=== PATIENT | female | born 1965 | race Caucasian/White ===

== ENCOUNTER → 2019-03-07 10:01 | Outpatient (CLI) | payer OTHER, SELFPAY ==
--- NOTE | 2019-03-07 | DI.MG.S_ITS ---
BILATERAL DIGITAL SCREENING MAMMOGRAM 3D/2D WITH CAD WITH AUGMENTATION: 03/07/2019 CLINICAL: Routine screening. Comparison is made to exams dated: 11/01/2013 mammogram, 04/22/2011 mammogram, and 02/16/2010 mammogram - [facility]. There are scattered fibroglandular elements in both breasts. Current study was also evaluated with a Computer Aided Detection (CAD) system. Bilateral breast implants are intact. No significant masses, calcifications, or other findings are seen in either breast. There has been no significant interval change. IMPRESSION: NEGATIVE There is no mammographic evidence of malignancy. A 1 year screening mammogram is recommended. This exam was interpreted at Station ID: [id number]. NOTE: For mammograms, a report in lay terms will be sent to the patient. Approximately 15% of breast malignancies will not be visualized mammographically. In the management of a palpable breast mass, a negative mammogram must not discourage biopsy of a clinically suspicious lesion. Electronically Signed By: Cherri ch/ralph:03/07/2019 11:08:55 letter sent: Normal Exam ACR BI-RADS Category 1: Negative 3341F
--- NOTE | 2019-03-07 10:02 | DI.RAD.S_ITS ---
PROCEDURE: XR HIP W PEL IF DONE RT 2V INDICATIONS: right hip pain TECHNIQUE: AP view of the pelvis with lateral view of the hip were acquired. COMPARISON: [facility], CT, ABDOMEN/PELVIS WITH CONTRAST, 09/11/2014, 14:24. [facility], CR, XR LUMBAR SPINE 2-3V, 03/07/2019, 10:07. FINDINGS: Bones: No fractures or dislocations. Minimal degenerative changes of the hip joints bilaterally. A 3 mm rounded calcified joint body projects over the superior right hip joint. There is an osseus pseudoarticulation of the lateral left L5 transverse process with S1. Soft tissues: Multiple calcified pelvic phleboliths noted. IMPRESSION: 1. Minimal degenerative changes of the hip joints bilaterally. 2. 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 Dictated by: Yury Maradiaga M.D. on 03/07/2019 at 13:36 Approved by: Yury Maradiaga M.D. on 03/09/2019 at 14:42
--- NOTE | 2019-03-07 10:02 | DI.RAD.S_ITS ---
PROCEDURE: XR LUMBAR SPINE 2-3V INDICATIONS: right hip pain TECHNIQUE: 3 views of the lumbar spine were acquired. COMPARISON: [facility], CT, ABDOMEN/PELVIS WITH CONTRAST, 09/11/2014, 14:24. FINDINGS: Bones: There are 5 [id number] vertebrae are present, with the most inferior rib-bearing vertebral body (identified at T12) bearing diminutive ribs bilaterally; this is also seen on comparison CT of 09/11/14. There is mild anterior wedging of the T11 and T12 vertebral bodies, most consistent with degenerative change. There are mild to moderate multilevel degenerative changes of the lumbar spine including degenerative disc disease with reactive endplate changes worst at L1-L2 and L5-S1, where there is significant loss of intervertebral disc space height. There is multilevel facet arthropathy. There is approximately 6 mm of anterolisthesis of L4 on L5. Soft tissues: Overlying bowel gas pattern is normal. No suspicious soft tissue calcifications. IMPRESSION: 1. Mild to moderate multilevel degenerative changes of the lumbar spine worst at L1-L2 and L5-S1. 2. Approximately 6 mm of anterolisthesis of L4 on L5. 3. Mild anterior wedging of the T11 and T12 vertebral bodies, most consistent with chronic degenerative change. Correlation with point tenderness suggested to exclude acute fracture. Dictated by: Yury Maradiaga M.D. on 03/07/2019 at 13:24 Approved by: Yury Maradiaga M.D. on 03/07/2019 at 13:36
== END ==
PROVIDERS: PCP Family Medicine; Visit Provider Family Medicine
DX: Z12.31 Encounter for screening mammogram for malignant neoplasm of breast (principal); M25.551 Pain in right hip; M47.816 Spondylosis without myelopathy or radiculopathy, lumbar region; M47.817 Spondylosis without myelopathy or radiculopathy, lumbosacral region; M43.16 Spondylolisthesis, lumbar region; M89.9 Disorder of bone, unspecified; M25.851 Other specified joint disorders, right hip
CPT/HCPCS: 72100; 73502; 77063; 77067

== ENCOUNTER → 2019-08-17 09:15 | Outpatient (CLI) | payer OTHER, SELFPAY ==
--- NOTE | 2019-08-17 09:16 | DI.MRI.S_ITS ---
PROCEDURE: MR LUMBAR SPINE WO CON INDICATIONS: low back pain TECHNIQUE: Noncontrast sagittal T1 spin echo and T2 fast echo, sagittal STIR, axial T1 and T2 fast spin echo through the lumbar spine. In cases with scoliosis, additional coronal T2 fast spin echo may be performed. COMPARISON: [facility], CR, XR LUMBAR SPINE 2-3V, 03/07/2019, 10:07. FINDINGS: Image quality: Excellent. Alignment and Curvature: There is mild L4-L5 anterolisthesis secondary to facet hypertrophy. Trace L1-L2 and L2-L3 retrolisthesis. Bone Marrow: Reactive endplate change is noted adjacent to the L1-L2 disc. No acute vertebral body compression fractures. Spinal Cord: Conus medullaris terminates at the T12-L1 disc level. Visualized cord demonstrates normal signal and size. Paraspinous Soft Tissues: No paravertebral masses. L1-L2: Loss of disc signal and height. Moderate, diffuse disc bulge. Mild narrowing of the central canal. Mild bilateral neural foraminal narrowing. No neural compression. L2-L3: A loss of the signal. Mild, diffuse disc bulge. Mild narrowing of the central canal. Mild bilateral neural foraminal narrowing. No neural compression. L3-L4: Loss of disc signal. Mild, diffuse disc bulge. Mild bilateral facet hypertrophy. Mild narrowing of the central canal. Mild bilateral neural foraminal narrowing. No neural compression. There is a fissure in the anterior annulus. L4-L5: Loss of disc signal and height. Mild, diffuse disc bulge with severe bilateral facet hypertrophy. Moderate to severe narrowing of the central canal. Moderate bilateral neural foraminal narrowing. No neural compression. L5-S1: Loss of the signal. Mild, diffuse disc bulge. Mild bilateral facet hypertrophy. No central stenosis. No neural foraminal narrowing. No neural compression. IMPRESSION: 1. Grade I L4-L5 degenerative spondylolisthesis. Trace L1-L2 and L2-L3 degenerative spondylolisthesis. 2. Multilevel degenerative disc disease. 3. Multilevel facet arthropathy. 4. Moderate to severe L4-L5 central canal narrowing. Mild L1-L2, L2-L3 and L3-L4 central canal narrowing. 5. Moderate bilateral L4-L5 neural foraminal narrowing. Mild bilateral L1-L2, L2-L3 and L3-L4 neural foraminal narrowing. 6. No neural compression. 7. L3-L4 disc annulus fissure. Dictated by: Remedios Lynn MD, PhD on 08/17/2019 at 10:11 Approved by: Remedios Lynn MD, PhD on 08/17/2019 at 10:42
== END ==
PROVIDERS: PCP Family Medicine; Referring Provider Family Medicine; Visit Provider Family Medicine
DX: M54.5 Low back pain (principal); M51.36 Other intervertebral disc degeneration, lumbar region; M51.37 Other intervertebral disc degeneration, lumbosacral region; M48.061 Spinal stenosis, lumbar region without neurogenic claudication; M47.816 Spondylosis without myelopathy or radiculopathy, lumbar region; M47.817 Spondylosis without myelopathy or radiculopathy, lumbosacral region; M43.16 Spondylolisthesis, lumbar region
CPT/HCPCS: 72148

== ENCOUNTER → 2019-11-03 10:53 | Outpatient (CLI) | payer OTHER, SELFPAY ==
[2019-11-04 23:13] LABS: COVID19 Sendout Not Detected (Not Detect)
== END ==
PROVIDERS: PCP Family Medicine; Visit Provider Physician Assistant
DX: Z01.812 Encounter for preprocedural laboratory examination (principal)
CPT/HCPCS: 87635

== ENCOUNTER 2019-11-06 10:22 | Outpatient (CLI) | payer OTHER, SELFPAY ==
[2019-11-06] VITALS (9 sets, daily range): BP systolic 134–152; BP diastolic 80–119; PULSE 68–89; RESP 14–16; TEMP 37.1; O2SAT 96–100
--- NOTE | 2019-11-06 10:22 | DI.RAD.S_ITS ---
PROCEDURE: PAIN L/S TRANSFORAMINAL INJECT INDICATIONS: SPONDYLOSIS COMPARISON: None. FINDINGS: Fluoroscopic spot filming was performed to verify placement of spinal needles at the right L4-L5 foraminal level(s), as labeled on the films. Appropriate location(s) of the needle tip(s) was confirmed by injection of iodinated contrast. IMPRESSION: Access needle at the right L4-L5 foramina. Dictated by: Remedios Lynn MD, PhD on 11/07/2019 at 12:18 Approved by: Remedios Lynn MD, PhD on 11/07/2019 at 12:18
[2019-11-06] MEDS: fentaNYL 100 MCG/2 ML INJ 50 MCG IV (11:10)
[2019-11-06] MEDS: MIDAZOLAM 5 MG/5 ML VIAL IV (11:10)
[2019-11-06] MEDS: BETAMETHASONE 30 MG/5 ML MDV 6 MG INJ (11:13)
[2019-11-06] MEDS: BUPIVACAINE 0.25% (PF) VIAL 2 ML INJ (11:13)
[2019-11-06] MEDS: DEXAMETHASONE 10 MG/ML VIAL 20 MG INJ (11:13)
[2019-11-06] MEDS: IOPAMIDOL 15 ML VIAL 3 ML INJ (11:13)
--- NOTE | 2019-11-06 11:28 | P.PCN_ITS ---
Date/Time/Diagnoses Date of procedure: 11/06/19 Time of procedure: 11:28 Pre-procedure diagnosis: 1. FORAMINAL STENOSIS WITH LE SYMPTOMS Post-procedure diagnosis: same Procedure Notes Procedure: 1. FLUOROSCOPICALLY GUIDED CONTRAST CONTROLLED TRANSFORAMINAL EPIDURAL STEROID INJECTION - RIGHT L4/5 TFESI Indications: Saranya is referred by for treatment of Foraminal Stenosis with Right LE Symptoms Physician: Adan Melendez Total Fluoroscopy time (seconds): 10 Total sedation minutes: 24 Complications: none Procedure in detail & Post-procedure care: FINDINGS Foraminal Nerve Root Compression secondary to disc disease and facet hypertrophy DESCRIPTION OF PROCEDURE Following review of allergy and review of potential side effects and complications, including, but not necessarily limited to, infection, allergic reaction, local tissue breakdown, stroke, temporary or permanent nerve injury, paralysis, and possible , the patient indicated that the patient understood and agreed to proceed. An informed consent document was signed by the patient, witnessed by a nurse, and placed in the patient's chart. Additionally, other treatment options including medications, modalities, and physical therapy were reviewed with the patient. After review of previous anaesthesic history and IV conscious sedation the patient was deemed safe to proceed with today?s procedure with IV conscious sedation as ASA class II designation. Safety time-out was performed to confirm patient ID, procedure to be performed and site of procedure. IV sedation was accomplished with a combination of 2mg of Versed and 50mcg of Fentanyl was administered by the RN after DO order, titrated to patient comfort during the course of the procedure while the patient remained responsive to all verbal c ommands. In the prone position following sterile prep and drape of the lumbar region, the right L4/5 posterior neuroforamen was identified fluoroscopically. The skin was anesthetized via a 25-gauge 1.5-inch needle with 1% lidocaine solution. At this point, a 25-gauge 3.5-inch spinal needle was atraumatically introduced and advanced under fluoroscopic guidance through the posterior right L4/5 n euroforamen to approximately the anterior aspect of the canal. Depth was confirmed on lateral view. Following negative aspiration, injection of approximately 1.5cc of Isovue 200 under live fluoroscopy in the AP view confirmed excellent flow along the nerve root, into the epidural space without vascular or intrathecal uptake observed. Radiological data, including multiple fluoroscopic views of the lumbosacral spine, reveal a spinal needle at the right L4/5 posterior neuroforamen. Subsequent views show flow of contrast material flowing superiorly and inferiorly along the nerve root confirming epidural flow. Subsequently, a test dose of 1.5 cc of 1% lidocaine solution was administered and patient was observed for two minutes for signs or symptoms of complications, including abdominal pain, shortness of breath, bilateral upper or lower extremity weakness, nausea and vomiting, prior to steroid injection. At this point, a total of 3cc or 20mg of dexamethasone and 6mg of betamethasone was injected without incident. The procedure tolerated the procedure well without signs or symptoms of complications prior to transfer to the recovery area continued monitoring without incident. The patient was then transferred to the recovery area where they were observed for an appropriate time after the injection. The patient reported a VAS score of 7 prior to the procedure and a post-pr ocedure VAS of 0. POST OP INSTRUCTIONS The patient was provided a Pain Log to continue to record their response to the target-specific procedure prior to follow-up visit with their referring physician. Additionally, specific post-injection care instructions and a contact number to our office were provided if concerns arise regarding possible complications associated with the procedure are suspected.
--- NOTE | 2019-11-06 16:03 | PC.NURSE ---
Pt tolerated procedure well. Vitals stable upon transfer to post procedure room. Report given to EDY Wu. Fentanyl and Versed given by EDY Price. All other meds given by Dr. Melendez.
== END 2019-11-06 11:45 ==
LOC: RAD 10:22
PROVIDERS: PCP Family Medicine; Referring Provider Physical Medicine & Rehabilitation; Visit Provider Physical Medicine & Rehabilitation
DX: M48.061 Spinal stenosis, lumbar region without neurogenic claudication (principal); M51.16 Intervertebral disc disorders with radiculopathy, lumbar region
CPT/HCPCS: 64483; 99152; J0702; J1100; J2250; J3010

== ENCOUNTER → 2020-01-18 12:29 | Outpatient (CLI) | payer OTHER, SELFPAY ==
[2020-01-18 15:40] LABS: Appearance Urine UA CLOUDY; Bilirubin Urine UA NEGATIVE (NEGATIVE); Color Urine UA YELLOW; Glucose Urine UA TRACE g/dL (Negative); Ketones Urine UA TRACE (NEGATIVE); Leukocyte Esterase Urine UA 2+ (NEGATIVE); Nitrite Urine UA NEGATIVE (Negative); Occult Blood Urine UA TRACE-LYSED (Negative); Protein Urine UA 1+ (Negative); Urobilinogen Urine UA 0.2 E.U./dL (0.2)
[2020-01-18 15:48] LABS: Bacteria Urine Moderate (10-30); Culture Indicated Urine Specimen Cultured; RBC Urine 1-5/HPF (0-5/HPF); Squamous Epithelial Cell Urine 1-5 /HPF (0-5/HPF); WBC Urine 10-30/HPF (0-5/HPF)
== END ==
PROVIDERS: PCP Family Medicine; Visit Provider Nurse Practitioner Family
DX: R30.0 Dysuria (principal)
CPT/HCPCS: 81001; 87077; 87086; 87186

== ENCOUNTER → 2020-07-03 15:48 | Outpatient (CLI) | payer OTHER, SELFPAY ==
[2020-07-03] MEDS: COVID-19 VACC #1, MRNA(MOD) 100 MCG/0.5 ML VIAL IM (15:55)
== END ==
PROVIDERS: PCP Family Medicine; Visit Provider Internal Medicine
DX: Z23 Encounter for immunization (principal)
CPT/HCPCS: 0011A; 91301

== ENCOUNTER → 2020-08-01 15:46 | Outpatient (CLI) | payer OTHER, SELFPAY ==
[2020-08-01] MEDS: COVID-19 VACC #2, MRNA(MOD) 100 MCG/0.5 ML VIAL IM (15:54)
== END ==
PROVIDERS: PCP Family Medicine; Visit Provider Internal Medicine
DX: Z23 Encounter for immunization (principal)
CPT/HCPCS: 0012A; 91301

== ENCOUNTER → 2021-10-07 16:18 | Outpatient (CLI) | payer OTHER, SELFPAY | PROVIDERS: PCP Family Medicine; Referring Provider Family Medicine; Visit Provider Family Medicine | DX: Z12.31 Encounter for screening mammogram for malignant neoplasm of breast (principal); Z53.8 Procedure and treatment not carried out for other reasons ==

== ENCOUNTER → 2022-10-09 11:16 | Outpatient (CLI) | payer OTHER, SELFPAY ==
--- NOTE | 2022-10-09 | DI.MG.S_ITS ---
BILATERAL DIGITAL SCREENING MAMMOGRAM 3D/2D WITH CAD WITH AUGMENTATION: 10/09/2022 CLINICAL: Patient presents for routine screening. S/P bilateral augmentation. Comparison is made to exams dated: 03/07/2019 mammogram, 11/01/2013 mammogram, and 12/27/2012 mammogram - [facility]. There are scattered areas of fibroglandular density in both breasts (category b / 25%-50% glandular tissue). Current study was also evaluated with a Computer Aided Detection (CAD) system. Bilateral breast implants are intact. No significant masses, calcifications, or other findings are seen in either breast. There has been no significant interval change. IMPRESSION: NEGATIVE There is no mammographic evidence of malignancy. A 1 year screening mammogram is recommended. Based on the Tyrer Cuzick model (a risk assessment model) the patient's lifetime risk is 6.3% and her 10 year risk is 2.4%. According to the ACR, ACS, and NCCN guidelines, an annual breast MRI exam along with mammogram is recommended if the patient's lifetime risk is 20% or greater. This exam was interpreted at Station ID: [id number]. NOTE: For mammograms, a report in lay terms will be sent to the patient. Approximately 15% of breast malignancies will not be visualized mammographically. In the management of a palpable breast mass, a negative mammogram must not discourage biopsy of a clinically suspicious lesion. Electronically Signed By: Mac blanc/ralph:10/11/2022 07:25:27 letter sent: Normal Exam ACR BI-RADS Category 1: Negative 3341F
== END ==
PROVIDERS: PCP Family Medicine; Referring Provider Family Medicine; Visit Provider Family Medicine
DX: Z12.31 Encounter for screening mammogram for malignant neoplasm of breast (principal); Z98.82 Breast implant status
CPT/HCPCS: 77063; 77067

== ENCOUNTER → 2025-01-10 14:45 | Outpatient (CLI) | payer OTHER, SELFPAY ==
--- NOTE | 2025-01-10 14:47 | DI.MG.S_ITS ---
MM screening mammo implant BI: 01/10/2025. BI-RADS: 2 CLINICAL: 59-year old female for bilateral screening mammogram. Tyrer-Cuzick lifetime risk of 7.1%. Current reported family history of breast cancer: mother. The patient has bilateral implants. PRIOR EXAMS 10/09/2022, 03/07/2019. MAMMOGRAPHY TECHNIQUE: 2D and 3D (tomosynthesis) digital mammographic views obtained, with additional images as needed for full coverage. Current study was also evaluated with a Computer Aided Detection (CAD) system. DENSITY B. There are scattered areas of fibroglandular density. IMPLANTS Breast implants present. MAMMOGRAPHY FINDINGS Bilateral: There are no suspicious masses, calcifications, or other findings in the breast. No significant change from comparison. IMPRESSION: * No evidence of malignancy with benign findings. RECOMMENDATIONS Bilateral * Annual screening mammography. OVERALL ASSESSMENT CATEGORY BI-RADS-2: Benign. The [employer] recommends annual screening mammography beginning at age 40 for women with average risk of breast cancer. ELECTRONICALLY SIGNED: Ellen Fleming M.D. on 01/11/2025 at 10:10:06 AM PT Interpreting Station ID: [id number]
== END ==
PROVIDERS: PCP Family Medicine; Referring Provider Family Medicine; Visit Provider Family Medicine
DX: Z12.31 Encounter for screening mammogram for malignant neoplasm of breast (principal); Z98.82 Breast implant status; Z80.3 Family history of malignant neoplasm of breast
CPT/HCPCS: 77063; 77067

== ENCOUNTER → 2025-02-04 12:52 | Outpatient (CLI) | payer OTHER, SELFPAY ==
[2025-02-04 14:03] LABS: Add Manual Diff / Slide Review NO; Hematocrit 45.8 % (36-46); Hemoglobin 15.5 g/dL (12.0-16.0); Lymphocytes Absolute Auto 1500 /uL (1100-4500); Mean Corpuscular HGB Conc 33.7 % (30-36); Mean Corpuscular Hemoglobin 31.2 PG (26-34); Mean Corpuscular Volume 92.4 fL (80-100); Platelet Count 369 X10^3/uL (150-400)
[2025-02-04 14:35] LABS: Alanine Aminotransferase 62 IU/L (<35); Albumin 4.9 g/dL (3.5-5.0); Albumin Globulin Ratio 1.7 (1.0-2.8); Alkaline Phosphatase 106 U/L (38-126); Blood Urea Nitrogen 20 mg/dL (7-17); Carbon Dioxide 22 mmol/L (22-32); Chloride 105 mmol/L (98-107); Cholesterol 213 mg/dL (140-199); Estimated Glomerular Filt Rate > 60 mL/min (>60); Globulin 2.9 g/dL (1.7-4.1); HEMOLYSIS < 15 (0-50); Total Protein 7.8 g/dL (6.3-8.2); Triglycerides 92 mg/dL (35-150)
[2025-02-04 14:37] LABS: Calcium 10.2 mg/dL (8.4-10.2); Glucose 96 mg/dL (70-99); HDL Cholesterol 87 mg/dL (40-60); Potassium 5.3 mmol/L (3.4-5.1); Sodium 137 mmol/L (137-145)
[2025-02-04 15:04] LABS: TSH w/ Reflex to FT4 1.97 uIU/mL (0.47-4.68)
== END ==
PROVIDERS: PCP Family Medicine; Referring Provider Family Medicine; Visit Provider Family Medicine
DX: Z00.00 Encounter for general adult medical examination without abnormal findings (principal); Z86.711 Personal history of pulmonary embolism; Z13.9 Encounter for screening, unspecified
CPT/HCPCS: 36415; 80053; 80061; 84443; 85025